=== PATIENT | female | born 1945 | race Caucasian/White ===

== ENCOUNTER → 2022-06-01 | Day surgery (SDC) | payer MEDICARE | LOC: MSO | DX: H25.12 Age-related nuclear cataract, left eye (principal) | CPT/HCPCS: 00142; J0171; J2250; V2632 ==

== ENCOUNTER → 2023-07-21 | Outpatient (CLI) | payer MEDICARE | LOC: RAD 15:21 | DX: M79.671 Pain in right foot (principal); Z91.81 History of falling ==

== ENCOUNTER 2024-05-06 22:32 | Observation (INO) | payer MEDICARE ==
[~2024-05-06] VITALS: Ht 162.6 cm; Wt 120.0 kg
[~2024-05-06 22:32] MED LIST: CARBIDOPA/LEVOD1 TA2 PO; CEFDINIR300 MG PO; ESCITALOPRAM5 MG PO; FUROSEMIDE40 MG; LOSARTAN POTASS50 M1 PO; PRAMIPEXOLE0.125 MG PO; PYRIDIUM200 M2 PO
[2024-05-06] MEDS ORDERED: CARBIDOPA/LEVOD1 TA2 PO (22:45)
[2024-05-06] MEDS ORDERED: PANTOPRAZOLE SO40 MG PO (22:47)
[2024-05-06] MEDS ORDERED: ENDOCET 5-3251 EACH PO (22:47)
[2024-05-06] MEDS ORDERED: ACETAMINOPHEN325 M1 PO (22:49)
[2024-05-06] MEDS ORDERED: COLACE100 M1 PO (22:50)
[2024-05-06] MEDS ORDERED: GERI-LANTA 355355 ML PO (22:51)
[2024-05-06] MEDS ORDERED: PERCOCET 325 MG1 TA2 PO (22:52)
[2024-05-06 22:57] LABS: BASO # 0.01 K/mm3 (0.02-0.10); EOS # 0.04 K/mm3 (0.04-0.40); EOS % 0.4 % (1.0-5.0); HEMATOCRIT 39.2 % (37.0-47.0); HEMOGLOBIN 12.6 g/dL (12.5-16.0); LYMPH# 1.46 K/mm3 (1.50-4.00); MEAN CELL VOLUME 92 fl (78-100); MEAN CORPUSCULAR HEMOGLOBIN 30 pg (27-31); MEAN CORPUSCULAR HGB CONC 32 g/dL (33-37); MEAN PLATELET VOLUME 9.8 fl (7.4-10.4); NEU # 6.51 K/mm3 (1.40-6.50); PLATELET COUNT 325 K/mm3 (130-400); RED BLOOD COUNT 4.27 M/mm3 (4.10-5.30); WHITE BLOOD COUNT 9.2 K/mm3 (4.8-10.8)
[2024-05-06 23:05] LABS: ALBUMIN 3.8 g/dL (3.4-4.8); SODIUM 137 mmol/L (136-145)
[2024-05-06 23:06] LABS: CALCIUM 9.2 mg/dL (8.3-10.5)
[2024-05-06 23:07] LABS: GLUCOSE 112 mg/dL (65-105)
[2024-05-06 23:08] LABS: CARBON DIOXIDE 26 mmol/L (23-31)
[2024-05-06 23:09] LABS: TOTAL BILIRUBIN 1.3 mg/dL (0.2-1.2)
[2024-05-06 23:13] LABS: AST-SGOT 7 U/L (5-34)
[2024-05-06 23:14] LABS: LIPASE 7 U/L (8-78)
[2024-05-06 23:15] LABS: ALT/SGPT < 6 U/L (0-55)
[2024-05-06] MEDS ORDERED: NS 500 ML IV SCH (23:15)
[2024-05-06 23:20] LABS: TROPONIN-I < 0.030 ng/mL (0.00-0.033)
[2024-05-07] MEDS ORDERED: Iohexol 300 - 100 ML VIAL IV ONE (00:17)
[2024-05-07] MEDS ORDERED: NS 100 ML IV SCH (00:18)
[2024-05-07] MEDS ORDERED: cefTRIAXone 1 G in Water For Injection,Sterile 10 ML IV ONE (00:30)
[2024-05-07 00:41] LABS: PH-URINE 8.5 (5.0 - 8.0); URINE APPEARANCE CLOUDY (CLEAR); URINE BILIRUBIN NEGATIVE (NEGATIVE); URINE BLOOD TRACE-LYSED (NEGATIVE); URINE COLOR YELLOW (YELLOW); URINE GLUCOSE NEGATIVE (NEGATIVE); URINE KETONE TRACE (NEGATIVE); URINE LEUKOCYTE ESTERASE 1+ (NEGATIVE); URINE NITRATE NEGATIVE (NEGATIVE); URINE PROTEIN(semi-quant) 3+ (NEGATIVE)
[2024-05-07 00:42] LABS: URINE WBC >50 /hpf (0-3)
[2024-05-07] MEDS ORDERED: Ondansetron 4 MG/2 ML VIAL IV PRN (01:15)
[2024-05-07] MEDS ORDERED: oxyCODONE/Acetaminophen 5-325 MG TAB PO PRN (01:15)
[2024-05-07] MEDS ORDERED: NS 1,000 ML IV SCH (01:15)
[2024-05-07] MEDS ORDERED: Mag/Al Hydrox/Simeth Susp 30 ML CUP PO PRN (01:15)
[2024-05-07] MEDS ORDERED: Acetaminophen 325 MG TAB PO PRN (01:15)
[2024-05-07] MEDS ORDERED: Miconazole 2% Topical Powder BOTTLE TP PRN (02:00)
[2024-05-07 02:05] VITALS: BP 100/59
[2024-05-07 03:17] VITALS: BP 146/76
[2024-05-07 07:13] LABS: BASO # 0.01 K/mm3 (0.02-0.10); EOS # 0.04 K/mm3 (0.04-0.40); EOS % 0.4 % (1.0-5.0); HEMATOCRIT 35.3 % (37.0-47.0); HEMOGLOBIN 11.4 g/dL (12.5-16.0); LYMPH# 1.37 K/mm3 (1.50-4.00); MEAN CELL VOLUME 90 fl (78-100); MEAN CORPUSCULAR HEMOGLOBIN 29 pg (27-31); MEAN CORPUSCULAR HGB CONC 32 g/dL (33-37); MEAN PLATELET VOLUME 9.8 fl (7.4-10.4); NEU # 7.67 K/mm3 (1.40-6.50); PLATELET COUNT 308 K/mm3 (130-400); RED BLOOD COUNT 3.94 M/mm3 (4.10-5.30); RED CELL DISTRIBUTION WIDTH 13.9 % (11.5-14.5); WHITE BLOOD COUNT 10.4 K/mm3 (4.8-10.8)
[2024-05-07 07:15] VITALS: BP 149/75
[2024-05-07 07:30] LABS: ALBUMIN 3.4 g/dL (3.4-4.8); SODIUM 138 mmol/L (136-145)
[2024-05-07 07:31] LABS: CALCIUM 8.5 mg/dL (8.3-10.5)
[2024-05-07 07:32] LABS: GLUCOSE 94 mg/dL (65-105); TOTAL PROTEIN 6.1 g/dL (6.2-8.1)
[2024-05-07 07:33] LABS: CARBON DIOXIDE 25 mmol/L (23-31)
[2024-05-07 07:38] LABS: AST-SGOT 7 U/L (5-34)
[2024-05-07 07:44] LABS: ALT/SGPT < 6 U/L (0-55)
[2024-05-07] MEDS ORDERED: Escitalopram 10 MG TAB PO SCH (09:00)
[2024-05-07] MEDS ORDERED: Furosemide 40 MG TAB PO SCH (09:00)
[2024-05-07] MEDS ORDERED: Losartan 50 MG TAB PO SCH (09:00)
[2024-05-07] MEDS ORDERED: Carbidopa/Levodopa 25-250 MG TAB PO SCH ×2 (09:00→12:00)
[2024-05-07 15:25] VITALS: BP 181/79
[2024-05-07 19:00] VITALS: BP 158/67
[2024-05-07 23:00] VITALS: BP 107/69; BP 164/71
[2024-05-07] MEDS ORDERED: cefTRIAXone 1 G in Water For Injection,Sterile 10 ML IV SCH (23:00)
[2024-05-08 02:56] VITALS: BP 184/69
[2024-05-08 07:10] VITALS: BP 198/98
[2024-05-08 11:15] VITALS: BP 176/78
[2024-05-08 15:20] VITALS: BP 171/89
[2024-05-08 19:00] VITALS: BP 137/72
[2024-05-08] MEDS ORDERED: cefTRIAXone 1 G in Water For Injection,Sterile 10 ML IV SCH (21:00)
[2024-05-08 22:44] VITALS: BP 160/82
[2024-05-09 02:52] VITALS: BP 177/100
[2024-05-09 05:45] LABS: BASO # 0.01 K/mm3 (0.02-0.10); EOS % 1.1 % (1.0-5.0); HEMATOCRIT 33.8 % (37.0-47.0); HEMOGLOBIN 11.1 g/dL (12.5-16.0); LYMPH# 1.56 K/mm3 (1.50-4.00); MEAN CELL VOLUME 91 fl (78-100); MEAN CORPUSCULAR HEMOGLOBIN 30 pg (27-31); MEAN CORPUSCULAR HGB CONC 33 g/dL (33-37); MEAN PLATELET VOLUME 9.8 fl (7.4-10.4); MONO # 1.05 K/mm3 (0.20-0.80); NEU # 6.29 K/mm3 (1.40-6.50); PLATELET COUNT 291 K/mm3 (130-400); WHITE BLOOD COUNT 9.1 K/mm3 (4.8-10.8)
[2024-05-09 06:01] LABS: ALBUMIN 3.3 g/dL (3.4-4.8); SODIUM 138 mmol/L (136-145)
[2024-05-09 06:03] LABS: CALCIUM 8.5 mg/dL (8.3-10.5)
[2024-05-09 06:04] LABS: GLUCOSE 90 mg/dL (65-105)
[2024-05-09 06:05] LABS: CARBON DIOXIDE 24 mmol/L (23-31)
[2024-05-09 06:06] LABS: TOTAL BILIRUBIN 0.6 mg/dL (0.2-1.2)
[2024-05-09 06:09] LABS: AST-SGOT 7 U/L (5-34)
[2024-05-09 06:13] LABS: ALT/SGPT < 6 U/L (0-55)
[2024-05-09 07:10] VITALS: BP 159/83
[2024-05-09] MEDS ORDERED: Acetaminophen 325 MG TAB PO PRN (07:30)
[2024-05-09] MEDS ORDERED: oxyCODONE/Acetaminophen 5-325 MG TAB PO PRN (08:00)
[2024-05-09] MEDS ORDERED: Magnesium Oxide 400 MG TAB PO SCH (08:09)
[2024-05-09] MEDS ORDERED: Cephalexin 500 MG CAP PO SCH (09:45)
[2024-05-09 11:10] VITALS: BP 109/69
[2024-05-09] MEDS ORDERED: CEPHALEXIN500 M1 PO (13:47)
[2024-05-09] MEDS ORDERED: ZOFRAN ODT4 MG PO (13:49)
[2024-05-09 15:06] VITALS: BP 166/85
[2024-05-09 19:00] VITALS: BP 140/96
[2024-05-09 23:00] VITALS: BP 142/96
[2024-05-10 02:30] VITALS: BP 155/84
[2024-05-10 07:20] VITALS: BP 184/74
[2024-05-10 10:33] VITALS: BP 162/82
[2024-05-10 14:37] VITALS: BP 160/82
[2024-05-10] MEDS ORDERED: MACROBID 100 M100 MG PO (15:32)
== END 2024-05-10 16:05 ==
LOC: ED 22:32 → MED/SURG 05-07 00:53
PROVIDERS: Family Medicine; ADMIT Physician Assistant
DX: N39.0 Urinary tract infection, site not specified (principal); B95.5 Unspecified streptococcus as the cause of diseases classified elsewhere; E87.6 Hypokalemia; Z66 Do not resuscitate; I10 Essential (primary) hypertension; R11.2 Nausea with vomiting, unspecified; R19.7 Diarrhea, unspecified; R33.9 Retention of urine, unspecified; G20.A1 Parkinson's disease without dyskinesia, without mention of fluctuations; Z79.899 Other long term (current) drug therapy
CPT/HCPCS: A4314; G0378; J0696; J2405; J2765; J7030; J7040; Q9967